=== PATIENT | male | born 1995 | race Two or more races ===

== ENCOUNTER 2018-02-04 23:51 | Emergency (ER) | payer OTHER ==
[2018-02-04] MEDS ORDERED: Ibuprofen TAB* 600 MG PO ONE (23:53)
[2018-02-04] MEDS ORDERED: Bacitracin OINTMENT* 0.5% 0.5 oz TUBE TOPICAL ONE (23:53)
[2018-02-05] MEDS ORDERED: HYDROcodone/ACETAMIN 5-325 MG* 1 TAB PO ONE (00:40)
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
[2018-02-05 02:08] VITALS: BP 128/85
--- NOTE | 2018-02-05 08:24 | RAD ---
Indication: LEFT clavicle and hip pain following injury. Comparison: None. Technique: AP and cephalad oblique views LEFT clavicle. Report: Mildly comminuted mid clavicular fracture with up to 3 cm transverse override of the fracture fragments. Overlying soft tissue swelling. No conspicuous subcutaneous emphysema. Unremarkable sternoclavicular and acromioclavicular joint alignment. IMPRESSION: #. Midclavicular fracture as described. R0
--- NOTE | 2018-02-05 08:26 | RAD ---
Indication: LEFT hip pain following injury. Comparison: No relevant prior exams available on the [facility] for comparison. Technique: Supine AP pelvis and AP and frog-leg lateral views LEFT hip. Report: Normally located LEFT hip and normal alignment at the anterior and posterior pelvis. Preserved hip joint spaces. No cortical disruption or suspicious trabecular irregularity to suggest fracture. Unremarkable soft tissue contours. IMPRESSION: #. No radiographic evidence for LEFT hip or pelvic fracture. R0
== END 2018-02-05 02:06 | disposition home or self-care (01) ==
LOC: ED 23:51
DX: S42.009A Fracture of unspecified part of unspecified clavicle, initial encounter for closed fracture (principal); S70.02XA Contusion of left hip, initial encounter; M25.552 Pain in left hip; Y93.55 Activity, bike riding; Y92.9 Unspecified place or not applicable
CPT/HCPCS: 99283; A9270-GY

== ENCOUNTER 2018-04-05 20:11 | Inpatient (IN) | payer OTHER ==
--- NOTE | 2018-04-05 20:40 | ED ---
Psychiatric Complaint - HPI Summary HPI Summary: This patient is a 22 year old M presenting to [facility] with a chief complaint of depression and SI PROOFER PREPRESS. The patient has SI with a plan to hang himself. The patient stated he had a specific plan and materials. The Pt has a Hx of depression since 1-2 years ago. 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 He states he drinks occasionally but does not smoke or do any recreational drugs. The patient is not currently on medication and has no other medical complaints. - History Of Current Complaint Chief Complaint: EDMentalHealth Time Seen by Provider: 04/05/18 20:25 Hx Obtained From: Patient Onset/Duration: Lasting Weeks, Still Present Character: Depressed Related History: Positive For: Prior Psychiatric Issues - Depression Has Suicidal: Reports: Thoughts, With A Plan - Allergies/Home Medications Allergies/Adverse Reactions: Allergies Allergy/AdvReac Type Severity Reaction Status Date / Time No Known Allergies Allergy Verified 04/05/18 20:19 Home Medications: Home Medications NK [No Home Medications Reported] 04/05/18 [History Confirmed 04/05/18] PMH/Surg Hx/FS Hx/Imm Hx Endocrine/Hematology History: Denies: Hx Diabetes Cardiovascular History: Denies: Hx Hypertension Psychiatric History: Reports: Hx Depression - Surgical History Surgery Procedure, Year, and Place: None Infectious Disease History: No Infectious Disease History: Reports: Traveled Outside the [place] in Last 30 Days - Family History Known Family History: Positive: Hypertension Negative: Diabetes - Social History Alcohol Use: None Hx Substance Use: No Substance Use Type: Reports: None Hx Tobacco Use: No Smoking Status (MU): Never Smoked Tobacco Review of Systems Negative: Fever Positive: Depressed All Other Systems Reviewed And Are Negative: Yes Physical Exam - Summary Physical Exam Summary: Appearance: Well-appearing, Well-nourished, lying in bed comfortable Skin: Warm, dry, no obvious rash Eyes: sclera anicteric, no conjunctival pallor ENT: mucous membranes moist Neck: deferred Respiratory: No signs of respiratory distress Cardiovascular: Appears well perfused, pulses are nml Abdomen: deferred Musculoskeletal: Moving all 4 extremities without obvious discomfort Neurological: Awake and alert, mentation is normal, speech is fluent and appropriate Psychiatric: Flat and depressed affect., does not appear anxious. Triage Information Reviewed: Yes Vital Signs On Initial Exam: Initial Vitals Temp Pulse Resp BP Pulse Ox 99.8 F 86 18 134/82 99 04/05/18 20:14 04/05/18 20:14 04/05/18 20:14 04/05/18 20:14 04/05/18 20:14 Vital Signs Reviewed: Yes Diagnostics - Vital Signs Vital Signs Temp Pulse Resp BP Pulse Ox 04/05/18 20:14 99.8 F 86 18 134/82 99 - Laboratory Result Diagrams: 04/05/18 20:36 04/05/18 20:36 Lab Statement: Any lab studies that have been ordered have been reviewed, and results considered in the medical decision making process. Re-Evaluation - Re-Evaluation First Eval Re-Evaluation Time: 20:49 Change: Unchanged Comment: Pt medically cleared at 2048. Course/Dx - Course Course Of Treatment: This patient is a 22 year old M presenting to [facility] with a chief complaint of depression and SI PROOFER PREPRESS. The patient has SI with a plan to hang himself. Pt medically cleared at 2048 awaiting MHE. - Differential Dx/Clinical Impression Provider Diagnosis: Depression, Suicidal ideation Discharge - Sign-Out/Discharge Documenting (check all that apply): Patient Departure - Discharge Plan Condition: Stable Disposition: PSYCHIATRIC FACILITY-[facility] - Billing Disposition and Condition Condition: STABLE Disposition: Psychiatric Facility [facility] - Attestation Statements Document Initiated by Андрейibe: Yes Documenting Scribe: Douglas Gagnon Provider For Whom Marlon is Documenting (Include Credential): Xiang Laurent MD Scribe Attestation: Douglas Santiago, scribed for Xiang Laurent MD on 04/06/18 at 0603. Scribe Documentation Reviewed: Yes Provider Attestation: The documentation as recorded by the Douglas hart accurately reflects the service I personally performed and the decisions made by me, Xiang Laurent MD
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
[2018-04-05 21:01] LABS: ABS Basophils 0 10^3/ul (0-0.2); ABS Eosinophils 0.2 10^3/ul (0-0.6); ABS Lymphocytes 1.9 10^3/ul (1.0-4.8); ABS Monocytes 0.7 10^3/ul (0-0.8); ABS Neutrophils 7.3 10^3/ul (1.5-7.7); ABS Nucleated RBC 0 10^3/ul; Eosinophil % 1.6 % (0-6); Hematocrit 47 % (42-52); Hemoglobin 15.8 g/dl (14.0-18.0); Mean Corpuscular HGB Conc 34 g/dl (31-36); Mean Corpuscular Hemoglobin 29 pg (27-31); Mean Corpuscular Volume 85 fL (80-94); Mean Platelet Volume 7.4 fL (7.4-10.4); Nucleated Red Blood Cells % 0; Platelet Count 238 10^3/ul (150-450); Red Cell Distribution Width 14 % (10.5-15); White Blood Count 10.1 10^3/ul (3.5-10.8)
[2018-04-05 21:06] LABS: EGFR Non-African American 124.1 (>60)
[2018-04-05 21:08] LABS: Urine Appearance Clear; Urine Blood 2+ (Negative); Urine Color Yellow; Urine Ketones Negative (Negative); Urine Protein Negative (Negative); Urine Red Blood Cell Trace(0-2/hpf) (Absent); Urine Specific Gravity 1.026 (1.010-1.030); Urine Urobilinogen Negative (Negative); Urine White Blood Cell Trace(0-5/hpf) (Absent)
[2018-04-05] MEDS ORDERED: Al Hydrox/Mg Hydrox/Simet LIQ* 30 ML UDC PO PRN (23:01)
[2018-04-05] MEDS ORDERED: Acetaminophen TAB* 325 MG PO PRN (23:01)
[2018-04-06] MEDS: Vitamin THERAPEUTIC TAB PO SCH (12:15)
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
[2018-04-07] MEDS: Vitamin THERAPEUTIC TAB PO SCH (11:48)
[2018-04-08 08:00] VITALS: BP 118/73
[2018-04-08] MEDS: Vitamin THERAPEUTIC TAB PO SCH (09:02)
--- NOTE | 2018-04-08 16:11 | DS ---
DATE OF ADMISSION: 04/05/2018. DATE OF DISCHARGE: 04/08/2018. DISCHARGE DIAGNOSES: AXIS I: Major depressive disorder, single episode, severe without psychotic features. AXIS II: Deferred. CONDITION AT THE TIME OF DISCHARGE: Improved. The patient has steadfastly denied suicidal ideations throughout the hospitalization. He is very much future oriented and giving a good plan to maintain his safety in the future. Specifically, he is being picked up by a friend named John who he will be staying with and he will follow-up at the [facility]. In addition, he will be returning to his [place] soon and states that he will likely be bringing back one of his parents to the [place] area when he returns for the spring. The patient was given the option of medication therapy for depression; however, he declined this, looking to receive more conservative care with psychotherapy. He has been increasingly social on the unit, appearing to be more comfortable, less isolative, and at this point we feel like he could reasonably and safely be treated in the outpatient setting. The patient is appropriately requesting discharge and we have no legal justification to continue to treat him involuntarily on the inpatient unit. MENTAL STATUS EXAMINATION: The patient is a slightly overweight, dark-skinned, [place] male wearing eyeglasses. He is wearing a runner's long sleeve zip-down shirt. He is clean, well-groomed, sits with good posture, makes good eye contact. It is fairly easy to establish a rapport with him. Speech has a normal rate, tone, and volume with fluent Amharic with an Norwegian accent. Mood is depressed with a constricted affect. Thought process is linear and goal- directed. Thought content is significant for his desire to be discharged from the hospital. At this time, he is continuing to deny suicidal ideations and also denies homicidality. He denies auditory or visual hallucinations. Insight and judgment appear to be fair given his willingness to follow-up with outpatient treatment. Cognitively, he is awake and alert with what would appear to be a slightly above average intellect by virtue of his academic history. DISCHARGE INSTRUCTIONS TO THE PATIENT: A. Medications: None. B. Diet: Regular. C. Activities: As tolerated. The patient is a nonsmoker. There are no laboratory or diagnostic studies pending at the time of discharge. D. Follow-up care: The patient will be seen at the [facility] this afternoon at 3:30 p.m. E. Substance abuse follow-up: Nonapplicable. 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 He stated in our emergency room that he had purchased a rope online several weeks ago and had the intention to hang himself; however, this attempt was interrupted by a friend knocking on his door. Both a noose and a suicide note were obtained by [place] police and he was brought to the hospital. The patient states that he has no prior mental health history, no previous suicide attempts, or history of harming himself or others. In our emergency room, he was somewhat guarded, soft -spoken, not offering much information. The patient stated that his parents are in [place] and that his family is his biggest stressor. He told our crisis evaluators that he was "fine now" and would like to go home and follow-up with [facility]; however, we felt that this would not be a safe plan and he was admitted on 9.39 status. When I meet with the patient, he was calm, cooperative , engaged, but with a somewhat constricted affect. In terms of stressors, he indicated that this was his first time living alone and he has only been in the [facility] for less than four months and has somewhat limited psychosocial support here. Another significant stressor is that he self- identifies as homosexual and comes from a conservative Mormon family in [place] and his family is unaware of his sexuality. His assumption is that they would reject him for this. The patient experiences some shame and guilt related to his sexuality and started experiencing suicidal thoughts shortly after moving to [place]. 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 He patient has been dating a male here in [place], but was reluctant to give us that person's name due to the fact that it is a fairly nascent relationship and he was uncertain about including anyone in his care at the time of admission. The patient did endorse multiple neurovegetative symptoms of depression including anhedonia, guilt, energy disturbance, increased appetite with 20 to 25 pound weight gain. He also endorsed suicidal ideations; however, he denied sleep disturbance, concentration problems, or psychomotor retardation. The patient denied psychotic symptoms. HOSPITAL COURSE - PART B: Psychiatric treatment rendered: The patient was admitted to the Adult Behavioral Health Unit where he was placed on q.15 minutes for his own safety. We offered him treatment with an antidepressant; however, he felt like a more conservative approach with psychotherapy would be beneficial. Throughout his stay it was notable that he was safe on all checks and continued to deny any thoughts of harming himself. For collateral information, we contacted his friend Luis Alberto Lozano. This friend indicated that he was unaware that Erick had been suffering, but certainly agreed to render support and some oversight to make sure to Erick follows up with indicated outpatient care. The patient did not offer us any contact with his family as they live in [facility] and he is extremely reluctant to have them learn anything about his sexual preference. With that being said, he did allow us to contact [facility] to hook him up with crisis management services, as well as definitive outpatient treatment on their campus. At this time, his affect is greatly improved and we feel that he can successfully receive treatment in a less restrictive setting. [id number]/[facility] #: [id number] SHANELLE
== END 2018-04-08 13:20 | disposition home or self-care (01) | DRG 885 ==
LOC: ED 20:11 → BSU 22:37
PROVIDERS: ADMIT Psychiatry & Neurology Psychiatry; ATTEND Psychiatry & Neurology Psychiatry
DX: F32.2 Major depressive disorder, single episode, severe without psychotic features (principal); R45.851 Suicidal ideations; E66.3 Overweight; Z72.89 Other problems related to lifestyle; Z81.8 Family history of other mental and behavioral disorders; Z82.49 Family history of ischemic heart disease and other diseases of the circulatory system; Z68.29 Body mass index [BMI] 29.0-29.9, adult
CPT/HCPCS: 36415; 80053; 80061; 80307; 80320; 81003; 81015; 83036; 84443; 85025; 87086; 90686; 99222; 99238; 99285; A9270-GY; G0480

== ENCOUNTER 2019-07-25 17:25 | Inpatient (IN) | payer OTHER ==
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
[2019-07-25 18:23] LABS: Urine Appearance Clear; Urine Bilirubin Negative (Negative); Urine Blood 1+ (Negative); Urine Color Yellow; Urine Glucose Negative (Negative); Urine Ketones Negative (Negative); Urine Nitrite Negative (Negative); Urine Protein Negative (Negative); Urine Urobilinogen Negative (Negative)
[2019-07-25 18:30] LABS: Urine Bacteria Absent (Absent); Urine Red Blood Cell 2+(6-10/hpf) (Absent); Urine Squamous Epithelial Cell Present (Absent); Urine White Blood Cell Absent (Absent)
[2019-07-25 18:40] LABS: ABS Eosinophils 0.1 10^3/ul (0-0.6); ABS Lymphocytes 2.2 10^3/ul (1.0-4.8); ABS Monocytes 0.5 10^3/ul (0-0.8); ABS Neutrophils 5.4 10^3/ul (1.5-7.7); Eosinophil % 0.6 %; Hematocrit 43 % (42-52); Hemoglobin 14.7 g/dL (14.0-18.0); Lymphocyte % 26.9 %; Mean Corpuscular HGB Conc 34 g/dL (31-36); Mean Corpuscular Hemoglobin 30 pg (27-31); Mean Corpuscular Volume 86 fL (80-94); Platelet Count 202 10^3/uL (150-450); Red Blood Count 4.97 10^6 /uL (4.18-5.48); Red Cell Distribution Width 14 % (10-15); White Blood Count 8.3 10^3/uL (3.5-10.8)
[2019-07-25 18:44] LABS: Urine Benzodiazepine Screen None Detected (None Detect); Urine Opiates Screen None Detected (None Detect)
[2019-07-25 18:56] LABS: ALT 24 U/L (7-52); AST 20 U/L (13-39); Albumin 4.4 g/dL (3.2-5.2); Albumin/Globulin Ratio 1.7 (1-3); Alkaline Phosphatase 70 U/L (34-104); Anion Gap 6 mmol/L (2-11); Blood Urea Nitrogen 17 mg/dL (6-24); CO2 Carbon Dioxide 27 mmol/L (22-32); Calcium 9.2 mg/dL (8.6-10.3); Chloride 103 mmol/L (101-111); EGFR African American 139.4 (>60); EGFR Non-African American 115.2 (>60); Globulin 2.6 g/dL (2-4); Glucose 100 mg/dL (70-100); Potassium 3.9 mmol/L (3.5-5.0); Sodium 136 mmol/L (135-145)
[2019-07-25 19:19] LABS: Acetaminophen < 15 mcg/mL; Alcohol < 10 mg/dL (<10); Salicylate < 2.50 mg/dL (<30)
--- NOTE | 2019-07-25 19:25 | ED ---
Progress - Progress Note Progress Note: This patient was signed out at shift change at 1900 on 07/25/19, pending disposition, awaiting mental health evaluation. Mental health evaluation reveals pt needs to be admitted involuntarily. The patients condition is stable and will be admitted by Dr. Liu. Re-Evaluation - Re-Evaluation First Eval Re-Evaluation Time: 19:24 Comment: Pt will be admitted by Dr. Liu Course/Dx - Course Course Of Treatment: This patient was signed out at shift change at 1900 on , pending disposition, awaiting mental health evaluation. Mental evaluation reveals pt needs to be admitted involuntarily. The patients condition is stable and will be admitted by Dr. Liu with Dx of Major Depressive Disorder. - Diagnoses Provider Diagnoses: Major depressive disorder Discharge ED - Sign-Out/Discharge Documenting (check all that apply): Patient Departure - Admit - Discharge Plan Condition: Stable Disposition: [place]IATRIC FAC[place] [place] Billing Disposition and Condition Condition: STABLE Disposition: Psychiatric Facility [facility] [place] - Attestation Statements Document Initiated by Scribe: Yes Documenting Scribe: Sejal Miranda Provider For Whom Scribe is Documenting (Include Credential): Xiang Laurent MD Scribe Attestation: Sejal Santiago, wilied for Xiang Laurent MD on 07/26/19 at 0422. Scribe Documentation Reviewed: Yes Provider Attestation: The documentation as recorded by the scribeSejal accurately reflects the service I personally performed and the decisions made by me, Xiang Laurent MD Status of Scribe Document: Viewed
[2019-07-25 19:34] LABS: TSH (Thyroid Stimulating Horm) 1.81 mcIU/mL (0.34-5.60)
[2019-07-25] MEDS ORDERED: Al Hydrox/Mg Hydrox/Simet LIQ* 30 ML UDC PO PRN (21:24)
[2019-07-25] MEDS ORDERED: traZODone TAB* 50 MG TAB PO PRN (21:24)
[2019-07-25] MEDS ORDERED: Acetaminophen TAB* 325 MG PO PRN (21:24)
[2019-07-26] MEDS: Vitamin THERAPEUTIC TAB PO SCH (13:40)
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
[2019-07-27 08:22] LABS: HDL Cholesterol 36.6 mg/dL
[2019-07-27] MEDS: FLUoxetine CAP* 10 MG PO SCH (10:06)
[2019-07-27] MEDS: Vitamin THERAPEUTIC TAB PO SCH (10:07)
[2019-07-28] MEDS: Vitamin THERAPEUTIC TAB PO SCH (08:52)
[2019-07-28] MEDS: FLUoxetine CAP* 10 MG PO SCH (08:52)
--- NOTE | 2019-07-28 10:29 | PN ---
Subjective - Subjective Date of Service: 07/28/19 Service Type: 31689 Hosp care 35 min high complexity Subjective: Nursing Report: Patient was visible on unit, no behavioral incidents, Slept overnight. He is attending group activities. CC: "I want to be discharged" Patient reported that he put a belt around his neck and the chair broke. The patient is requesting to be discharged and is preoccupied with leaving. He accepted starting treatment and denied side effects. Patient wishes not to talk to his parents about being in the hospital. Patient reported that he does not want to take a medical leave from school. Objective - General Observations Appearance: Disheveled Appears Stated Age: Yes Stature: WNL Posture: Slumped Eye Contact: Avoidant Behavior/Activity: Slowed - Interaction Observations Attitude Towards Examiner: Cooperative Stated Mood: Dysphoric Affect: Flat, Restricted Speech Pattern/Tone: Perseverating, Quiet Volume Thought Process: Coherent, Impoverished, [place] Perception: WNL Thought Content: Depressive Thought Process: Lethality: Passive Wish Hallucination Type: Denies Delusion Type: Denies - Cognitive Function Orientation: A&O x 4 Level of Consciousness: Awake - Medication Compliance Cooperative with Inpatient Medication Regimen: Yes - Group Participation Participates in Group Activities: Yes Assessment - Assessment Merits Inpatient Hospitalization: For Immediate Safety Clinical Impression: The patient is a 22-year-old single, homosexual, male, 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 Plan - Plan Treatment Plan: Name: WING ANDERSON Birthdate: 1995 [id number] #Q30 minute observation, staff pass, computer # The patient requires psychiatric inpatient admission at this time to assure safety, receive treatment and work toward stabilization. # Contact close support to involve in safety plan # Collaboration with Installation And Service Technician Johana Calvillo # Increase prozac to 20mg daily #Goals before discharge include: Psychiatric Stabilization Tentative Discharge: Pending hospital course and response to treatment Continued Medication Management: Continue Outpt Medication Medications: Current Medications Acetaminophen (Tylenol Tab*) 650 mg PO Q4H PRN PRN Reason: PAIN or TEMP > 101 F Al Hydrox/Mg Hydrox/Simethicone (Maalox Plus*) 30 ml PO Q4H PRN PRN Reason: INDIGESTION Fluoxetine HCl (Prozac Cap*) 10 mg PO DAILY [facility] Last Admin: 07/28/19 08:52 Dose: 10 mg Multivitamins (Theragran Tab*) 1 tab PO DAILY [facility] Last Admin: 07/28/19 08:52 Dose: 1 tab Trazodone HCl (Desyrel Tab*) 50 mg PO BEDTIME PRN PRN Reason: INSOMNIA - Discharge Plan Discharge Plan: Inpatient Hospitalization Outpatient Program: Counseling/Psych Services at [facility]
[2019-07-29] MEDS: Vitamin THERAPEUTIC TAB PO SCH (08:54)
[2019-07-29] MEDS ORDERED: FLUoxetine CAP* 10 MG PO SCH (09:00)
--- NOTE | 2019-07-29 09:43 | PN ---
Subjective - Subjective Date of Service: 07/29/19 Service Type: 33261 Hosp care 35 min high complexity Subjective: Nursing Report: Patient was visible on unit, no behavioral incidents. Slept 6 hours overnight. He is attending group activities. CC: "Fine" Patient was seen and evaluated today. The patient identified Storm as a source of support. 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 He spoke about how he likes working with plants. He did not wish to inform his family about being in the hospital because he is worried they will come to [place] and want him to leave school. He reported having adequate appetite and sleep. The patient reports attending day groups. Per nursing no behavioral issues or overnight events reported. Patient reported that he is tolerating medications without side effects. Objective - General Observations Appearance: Disheveled Appears Stated Age: Yes Stature: Overweight Posture: Slumped Eye Contact: Average Behavior/Activity: Slowed - Interaction Observations Attitude Towards Examiner: Cooperative Stated Mood: Dysphoric Affect: Restricted Speech Pattern/Tone: Quiet Volume Thought Process: [place] Perception: WNL Thought Content: Depressive Hallucination Type: Denies Delusion Type: Denies - Cognitive Function Orientation: A&O x 4 Level of Consciousness: Awake Cognition: WNL - Medication Compliance Cooperative with Inpatient Medication Regimen: Yes - Group Participation Participates in Group Activities: Yes Assessment - Assessment Clinical Impression: The patient is a 22-year-old single, homosexual, Algerian male, 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 Plan - Plan Treatment Plan: Name: WING ANDERSON Birthdate: 1995 [id number] #Q30 minute observation, staff pass, computer # The patient requires psychiatric inpatient admission at this time to assure safety, receive treatment and work toward stabilization. # Storm - patient in agreement to contact support to involve in safety planing before discharge # Collaboration with Research Lab Assistant Johana Calvillo # Increase prozac to 30mg daily #Goals before discharge include: Psychiatric Stabilization Tentative Discharge: Continued Medication Management: Continue Outpt Medication Medications: Current Medications Acetaminophen (Tylenol Tab*) 650 mg PO Q4H PRN PRN Reason: PAIN or TEMP > 101 F Al Hydrox/Mg Hydrox/Simethicone (Maalox Plus*) 30 ml PO Q4H PRN PRN Reason: INDIGESTION Fluoxetine HCl (Prozac Cap*) 20 mg PO DAILY [facility] Last Admin: 07/29/19 08:53 Dose: 20 mg Multivitamins (Theragran Tab*) 1 tab PO DAILY [facility] Last Admin: 07/29/19 08:54 Dose: 1 tab Trazodone HCl (Desyrel Tab*) 50 mg PO BEDTIME PRN PRN Reason: INSOMNIA - Discharge Plan Discharge Plan: Inpatient Hospitalization
[2019-07-30] MEDS ORDERED: FLUoxetine CAP* 10 MG PO SCH (09:00)
[2019-07-30] MEDS: Vitamin THERAPEUTIC TAB PO SCH (10:25)
--- NOTE | 2019-07-30 10:55 | PN ---
Subjective - Subjective Date of Service: 07/30/19 Service Type: [id number] Hosp care 35 min high complexity Subjective: Nursing Report: Patient was visible on unit, no behavioral incidents. He is attending group activities. CC: "Good" Patient was seen and evaluated today. The patient reported he feels safe with being discharged tomorrow. He gave permission to contact Storm a friend and his emergency contact. He reported having adequate appetite. Patient reported getting 5 hours of sleep. The patient reports attending day groups. Per nursing no behavioral issues or overnight events reported. Patient reported that he is tolerating medications without side effects. Objective - General Observations Appearance: Neat Appears Stated Age: Yes Stature: WNL Posture: Slumped Eye Contact: Average Behavior/Activity: WNL - Interaction Observations Attitude Towards Examiner: Cooperative Stated Mood: Euthymic Affect: Restricted Speech Pattern/Tone: Normal Volume Thought Process: Coherent, [place] Perception: WNL Thought Content: WNL Hallucination Type: None Delusion Type: None - Cognitive Function Orientation: A&O x 4 Level of Consciousness: Awake - Medication Compliance Cooperative with Inpatient Medication Regimen: Yes - Group Participation Participates in Group Activities: Yes Assessment - Assessment Merits Inpatient Hospitalization: For Immediate Safety Clinical Impression: The patient is a 22-year-old single, homosexual, Burkinan male, 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 Plan - Plan Treatment Plan: Name: WING ANDERSON Birthdate: 1995 [id number] #Q30 minute observation, staff pass, computer # The patient requires psychiatric inpatient admission at this time to assure safety, receive treatment and work toward stabilization. # Storm his emergency contact was contacted and confirmed that the patient has no access to firearms and would check in with the patient over the weekend # Collaboration with Survey Compiler Johana Calvillo # Increase prozac to 40mg daily # MMPI #Goals before discharge include: Psychiatric Stabilization Tentative Discharge: Continued Medication Management: Continue Outpt Medication Medications: Current Medications Acetaminophen (Tylenol Tab*) 650 mg PO Q4H PRN PRN Reason: PAIN or TEMP > 101 F Al Hydrox/Mg Hydrox/Simethicone (Maalox Plus*) 30 ml PO Q4H PRN PRN Reason: INDIGESTION Fluoxetine HCl (Prozac Cap*) 40 mg PO DAILY [facility] Multivitamins (Theragran Tab*) 1 tab PO DAILY [facility] Last Admin: 07/30/19 10:25 Dose: 1 tab Trazodone HCl (Desyrel Tab*) 50 mg PO BEDTIME PRN PRN Reason: INSOMNIA - Discharge Plan Discharge Plan: Inpatient Hospitalization
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
[2019-07-31] MEDS: Vitamin THERAPEUTIC TAB PO SCH (08:58)
[2019-07-31] MEDS ORDERED: FLUoxetine CAP* 20 MG PO SCH (09:00)
[2019-07-31 09:14] VITALS: BP 123/71
--- NOTE | 2019-07-31 14:22 | CONS ---
PSYCHOLOGICAL REPORT: DATE OF CONSULT: 07/31/19 PROCEDURE CODE: [id number]. REASON FOR REFERRAL: Erick Kirkpatrick) as he goes by, was referred for psychological testing secondary to concerns regarding possible mood instability and severity of depressive symptoms. Concerns regarding lethality or secondary to a failed hanging attempt. TEST ADMINISTERED: Martínez completed the [place] Multiphasic Personality Inventory- 2 (MMPI-2). He was given feedback in individual conversation and has also been seen by this video game script writer in the context of cognitive behavioral group psychotherapy throughout his stay here. 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 He is originally from [place] and describes very traditional upbringing both in terms of family and culture. He attended undergraduate education in [place] and has been at [employer] now for approximately a year and half. Ariel describes significant stressors with problems with acceptance from his family regarding sexual orientation. He has come out to his family in 2017, who have been reluctant to accept his experience of being homosexual. He has been in some healthy relationships, but they have not endured and he describes feeling extreme mood swings at times into depression. Martínez describes having such mood swings about once a week or every other week, describing how he feels very lonely and this makes him vulnerable to impulsive behavior at times. This is Ariel's second admission to this facility secondary to depression and he has responded possibly to both recommended medications as well as participating in group and individual programming. He expresses positive insights in regards to importance of engaging in followup treatment upon discharge. TEST RESULTS: Ariel provides a valid protocol despite a mild elevation on the Fb scale (T=72). This is reflective of some endorsement of cynical and pessimistic beliefs and attitudes regarding people and circumstance. As many people do, Martínez then elevated the depression and anxiety scales to fairly exact similar standard, but he has very profound spike on a psychopathic deviate scale (T=95). He also interestingly has a mild elevation on the lie scale. Both the lie scale on the psychopathic deviate scale concomitantly typically described a college oriented person who may hold themselves to higher than expected standards of moral reasoning and behavior. This is a fairly common phenomena in [employer] students who have a high achievement drive and who also are very independent in nature. Despite his elevation of psychopathic deviate scale, there are no concerns in regards to antisocial conductor behaviors or attitudes. His elevation here may be exacerbated by his sexual orientation as well as being from a different culture. Persons who elevate the psychopathic deviate scale, hold social conformity in norms and some disdain, and do not feel compelled to adhere to them. Discussion addressed how Ariel expresses this impulse in a prosocial fashion through his academic interest and attainment. Other scales of interest are the social scales on this administration of the MMPI, which is felt to be reflective of some feelings of emotional detachment and abandonment from others. This is felt to square with his description of feeling lonely at times and on to himself. Reassuring, he does not elevate the hypomania scale or the social introversion scale, which are both thought to be positive prognostic indicators. In regards to severity of depression, he has rather minimal elevation on the depression scale, although this should not be ignored. However, this was felt to be again reassuring in the context of lethality and that he has not had enduring depressive symptoms during his hospitalization. IMPRESSIONS AND RECOMMENDATIONS: Martínez impresses as a good candidate to benefit from insight-oriented psychotherapies. He is obviously very bright and could use both personal and professional supports as he moves forward. Considering how to manage his familial conflict in regards to orientation remains an enduring stressor for him and warrants continued discussion and ongoing treatment. [id number]/[facility] #: [id number] SHANELLE
== END 2019-07-31 11:05 | disposition home or self-care (01) | DRG 885 ==
LOC: ED 17:25 → BSU 19:30 → ED 20:21
PROVIDERS: ADMIT Psychiatry & Neurology Psychiatry; ATTEND Psychiatry & Neurology Psychiatry
DX: F33.2 Major depressive disorder, recurrent severe without psychotic features (principal); T14.91XA Suicide attempt, initial encounter; E66.3 Overweight; X83.8XXA Intentional self-harm by other specified means, initial encounter; Y92.214 College as the place of occurrence of the external cause; Z68.36 Body mass index [BMI] 36.0-36.9, adult; Z81.8 Family history of other mental and behavioral disorders
CPT/HCPCS: 36415; 80053; 80061; 80307; 80320; 80329; 81003; 81015; 83036; 84443; 85025; 96130; 99222; 99233; 99238; 99284; A9270-GY; G0480